=== PATIENT | male | born 1980 | race Caucasian/White ===

== ENCOUNTER 2016-11-17 08:57 | Inpatient (IN) | payer MEDICARE ==
[2016-11-17] MEDS ORDERED: HYDROmorphone 1 MG INJECTION IV ONE (09:18)
[2016-11-17] MEDS ORDERED: ONDANSETRON HCL 4 MG/2 ML VIAL IV ONE (09:18)
[2016-11-17] MEDS ORDERED: ONDANSETRON HCL 4 MG/2 ML VIAL IV PRN (09:18)
[2016-11-17] MEDS: NS 2,000 ML IV ONE ×2 (09:27→11:57)
[2016-11-17 09:29] LABS: AUTOMATED EOSINOPHIL 3.5 % (0-5); AUTOMATED LYMPH 22.7 % (17-44); AUTOMATED MONOCYTE 6.5 % (3-10); AUTOMATED NEUTROPHIL 66.3 % (45-76); MPV 10.5 fL (7.4-10.4)
[2016-11-17 09:51] LABS: BLOOD UREA NITROGEN 11 MG/DL (9-20); CALCIUM 10.1 MG/DL (8.4-10.2); CALCULATED OSMOLALITY 286 MOs/Kg (270-290); CHLORIDE 105 mEq/L (98-107); GLUCOSE 250 mg/dL (70-99); SODIUM LEVEL 145 mEq/L (137-146); TOTAL PROTEIN 8.7 G/DL (6.3-8.2)
[2016-11-17] MEDS ORDERED: Pharmacy Review for Metformin - IV Contrast Given SCH (10:00)
[2016-11-17 10:28] LABS: LEUKOCYTES/URINE NEG (NEGATIVE); NITRITE/URINE NEG (NEGATIVE); RBC/URINE 0-2 (0-2); URINE OCCULT BLOOD NEG (NEG/TRACE); WBC/URINE 0-2 (0-2)
[2016-11-17] MEDS: HYDROmorphone 1 MG INJECTION IV PRN ×2 (10:40→11:56)
--- NOTE | 2016-11-17 10:53 | DIRPT ---
CLINICAL DATA: Upper abdominal pain with nausea and vomiting today, prior appendectomy EXAM: CT ABDOMEN AND PELVIS WITH CONTRAST TECHNIQUE: Multidetector CT imaging of the abdomen and pelvis was performed using the standard protocol following bolus administration of intravenous contrast. Sagittal and coronal MPR images reconstructed from axial data set. CONTRAST: 100 cc Isovue 370 IV. No oral contrast administered. COMPARISON: None FINDINGS: 4 mm subpleural nodular density LEFT lower lobe image 10. Liver, gallbladder, spleen, pancreas, kidneys, and adrenal glands normal appearance. Appendix surgically absent by history. Normal appearing ureters and decompressed bladder. Stomach and bowel loops unremarkable for exam lacking GI contrast. No mass, adenopathy, free air, free fluid or inflammatory process. Bones unremarkable. IMPRESSION: No acute intra-abdominal or intrapelvic abnormalities. Questionable 4 mm subpleural nodule LEFT lower lobe, recommendation below. Beauty If the patient is at high risk for bronchogenic carcinoma, follow-up chest CT at 1 year is recommended. If the patient is at low risk, no follow-up is needed. This recommendation follows the consensus statement: Guidelines for Management of Small Pulmonary Nodules Detected on CT Scans: A Statement from the Fleischner Society as published in Radiology 2005; 237:395-400. Electronically Signed By: Momo Santana M.D. On: 11/17/2016 10:50
[2016-11-17] MEDS ORDERED: PROMETHAZINE 25 MG/ML VIAL IV ONE (11:42)
--- NOTE | 2016-11-17 12:43 | DIRPT ---
CLINICAL DATA: Nausea and vomiting for 6 hours with abdominal pain. EXAM: US ABDOMEN LIMITED - RIGHT UPPER QUADRANT COMPARISON: CT scan 11/17/2016 FINDINGS: Gallbladder: Layering tiny stones are seen in the lumen of the gallbladder without gallbladder wall thickening or pericholecystic fluid. The healthcare customer service reports a positive sonographic Jacobs sign. Common bile duct: Diameter: Normal at 4 mm. Liver: Coarsened echotexture suggests underlying steatosis. IMPRESSION: Gallstones with positive sonographic Jacobs sign. Although gallbladder wall thickness is normal at this time, acute cholecystitis would be a consideration. If clinical exam is equivocal, nuclear scintigraphy may prove helpful to further evaluate for cystic duct obstruction. Electronically Signed By: Jose Smallwood M.D. On: 11/17/2016 12:40
[2016-11-17] MEDS ORDERED: PIPERACILLIN AND TAZOBACTAM 3.375 GM in D5W 100 ML IV ONE (12:45)
--- NOTE | 2016-11-17 12:45 | EDPRACDOC ---
- General Information Chief Complaint: Abdominal Pain Stated Complaint: ABDOMINAL PAIN Time Seen by Provider: 11/17/16 09:14 Information Source: Patient Mode Of Arrival: Car Home Medications: Home Medications Alprazolam [Xanax] 1 mg PO DAILY 11/17/16 Amoxicillin/Potassium Clav [Augmentin 875-125 Tablet] 1 tab PO .BID X 10 Atorvastatin Calcium [Lipitor] 20 mg PO DAILY 11/17/16 Metformin HCl 1,000 mg PO BID 11/17/16 Pregabalin [Lyrica] 150 mg PO BID 11/17/16 Allergies/Adverse Reactions: Allergies Allergy/AdvReac Type Severity Reaction Status Date / Time PHENOBARBITOL Allergy Mild Rash-Genera Uncoded 11/17/16 09:10 lized - History of Present Illness Onset: TODAY Pain Location: Reports: RUQ, Periumbilical Pain Context: Reports: Spontaneous Pain Severity: Mild Pain Quality: Reports: Aching Pain Radiation: Reports: No Radiation Adult Abdominal History: Reports: Abdominal Surgery Modifying Factors: improves with: Nothing Associated Signs & Symptoms: Reports: Nausea Oral Intake: Decreased Urinary Output: Normal ED Past Medical History - History Reviewed Yes Nurses notes reviewed and agree except as marked - Patient Medical History Neurological History: Reports: Cerebrovascular Accident, Seizures (adolescent but none since then; resolved.) Cardiac History: Reports: Hypercholesterolemia Musculoskeletal History: Reports: Arthritis Psychological History: Reports: Anxiety (Panic attacks). Denies: Depression, Substance Use Disorder Systemic History: Reports: Diabetes (Type 2, not on insulin). Denies: Cancer Surgical History: Reports: Appendectomy - Family Medical History Reports: Hypertension (Mother and Father), Diabetes (Mother. Father.), Cancer ( Brain tumor: MGM and maternal uncler and maternal cousin.), Stroke (Mother: Stroke in her 40s.), Cardiac Disorders (Mother: first [place] in early 40s. MGF: [place]. Mother with possible aneurysm in [place]) - Social Medical History Smoking Status: Heavy tobacco smoker (5 or more cigarettes/day or daily pipe/ cigar) Social History: Denies: Substance Use Disorder EDM Review of Systems - Review of Systems ROS Negative Except as Marked: Yes All systems reviewed and were negative except as marked - Physical Exam Constitutional: Alert (Awake), No apparent distress Oriented to: Time, Person, Place Last recorded Vital Signs: Last Vital Signs Temp 97.8 F 11/17/16 09:07 Pulse 62 11/17/16 11:29 Resp 22 11/17/16 11:29 BP 147/76 11/17/16 11:29 Pulse Ox 99 11/17/16 11:29 Oxygen Pulse Oxygen Saturation 99 O2 Device Room Air Oxygen Flow Rate Fraction of Inspired Oxygen ( FIO2) - HEENT Head: Normal ( normocephalic) Eye Exam: Normal (PERRL, EOMI, Sclera white) Oropharynx: Normal (Pharynx:Moist without exudate,Gums-no swelling) ENT EAC: Normal TMJ: Normal Nose: No Symptoms Reported (septum midline) Neck: Normal (FROM, trachea at midline) - Respiratory/Cardiovascular Respiratory: Normal - CTA (BBS clear to auscultation without adventitious sounds ) Cardiovascular: Normal (RRR without murmur, gallop or rub) - GI Auscultation: Normal (NABS) Palpation: Normal (Soft,No rebound or guarding, non distended) Tenderness: Mild, RUQ, Epigastric Jacobs's Sign: Negative - Musculoskeletal Back: Normal (Non-Tender) Extremities: Normal (Normal tone, Pulses 2+ No cyanosis or edema, FROM) - Integumentary Skin: Normal, Warm, Dry Lymphatics: Normal (no adenopathy) - Neurologic Memory Impaired: Normal Motor Function: Normal (Normal tone, Pulses 2+ No cyanosis or edema, FROM) Cranial Nerve: Normal (CN II-X11 intact sensation, strength 5/5) Cerebellar: Normal Mood Description: Normal Perception: Normal - Results 11/17/16 09:20 11/17/16 09:20 WBC 12.4 xk/uL (3.8-10.8) H 11/17/16 09:20 RBC 6.01 xM/uL (4.70-6.10) 11/17/16 09:20 Hgb 16.4 g/dL (14.0-18.0) 11/17/16 09:20 Hct 48.2 % (42-52) 11/17/16 09:20 MCV 80 fL (80-94) 11/17/16 09:20 MCH 27.2 pg (27-32) 11/17/16 09:20 MCHC 34.0 g/dl (33-36) 11/17/16 09:20 RDW 13.8 % (11.5-14.5) 11/17/16 09:20 Plt Count 224 xk/uL (130-400) 11/17/16 09:20 MPV 10.5 fL (7.4-10.4) H 11/17/16 09:20 Neut % (Auto) 66.3 % (45-76) 11/17/16 09:20 Lymph % (Auto) 22.7 % (17-44) 11/17/16 09:20 [place] % (Auto) 6.5 % (3-10) 11/17/16 09:20 Eos % (Auto) 3.5 % (0-5) 11/17/16 09:20 Baso % (Auto) 1.0 % (0-2) 11/17/16 09:20 Absolute Neuts (auto) 8.18 xk/uL (1.7-8.2) 11/17/16 09:20 Absolute Lymphs (auto) 2.73 xk/uL (0.65-4.75) 11/17/16 09:20 Sodium 145 mEq/L (137-146) 11/17/16 09:20 Potassium 4.1 mEq/L (3.5-5.1) 11/17/16 09:20 Chloride 105 mEq/L (98-107) 11/17/16 09:20 Carbon Dioxide 25 mMOL/L (22-33) 11/17/16 09:20 Anion Gap 19 mEq/L (8-16) H 11/17/16 09:20 BUN 11 MG/DL (9-20) 11/17/16 09:20 Creatinine 0.70 MG/DL (0.66-1.25) 11/17/16 09:20 Estimated GFR (MDRD) > 60 mL/min (>=60) 11/17/16 09:20 Glucose 250 mg/dL (70-99) H 11/17/16 09:20 POC Capillary Glucose 224 mg/dL (70-99) H 11/17/16 09:14 Calculated Osmolality 286 MOs/Kg (270-290) 11/17/16 09:20 Calcium 10.1 MG/DL (8.4-10.2) 11/17/16 09:20 Total Bilirubin 0.6 MG/DL (0.2-1.3) 11/17/16 09:20 AST 27 IU/L (17-59) 11/17/16 09:20 ALT 39 IU/L (21-72) 11/17/16 09:20 Alkaline Phosphatase 92 IU/L (38-126) 11/17/16 09:20 Troponin I < 0.01 ng/mL (<.04) 11/17/16 09:20 Total Protein 8.7 G/DL (6.3-8.2) H 11/17/16 09:20 Albumin 4.6 G/DL (3.5-5.0) 11/17/16 09:20 Lipase 110 U/L (23-300) 11/17/16 09:20 Urine Color Yellow 11/17/16 10:15 Urine Clarity Clear 11/17/16 10:15 Urine pH 5.0 (5.0-8.0) 11/17/16 10:15 Ur Specific [place] >/=1.035 (1.003-1.035) 11/17/16 10:15 Urine Protein 2+ (NEG/TRACE) H 11/17/16 10:15 Urine Glucose (UA) 3+ (NEGATIVE) 11/17/16 10:15 Urine Ketones Neg (NEGATIVE) 11/17/16 10:15 Urine Occult Blood Neg (NEG/TRACE) 11/17/16 10:15 Urine Nitrite Neg (NEGATIVE) 11/17/16 10:15 Urine Bilirubin Neg (NEGATIVE) 11/17/16 10:15 Urine Urobilinogen <2.0 MG/DL (0-1) 11/17/16 10:15 Ur Leukocyte Esterase Neg (NEGATIVE) 11/17/16 10:15 Urine RBC 0-2 (0-2) 11/17/16 10:15 Urine WBC 0-2 (0-2) 11/17/16 10:15 Urine Mucus Mod (NEG/OCC) H 11/17/16 10:15 Lab Results 11/17/16 11/17/16 11/17/16 10:15 09:20 09:20 WBC 12.4 H RBC 6.01 Hgb 16.4 Hct 48.2 MCV 80 MCH 27.2 MCHC 34.0 RDW 13.8 Plt Count 224 MPV 10.5 H Neut % (Auto) 66.3 Lymph % (Auto) 22.7 [place] % (Auto) 6.5 Eos % (Auto) 3.5 Baso % (Auto) 1.0 Absolute Neuts (auto) 8.18 Absolute Lymphs (auto) 2.73 Sodium Potassium Chloride Carbon Dioxide Anion Gap BUN Creatinine Estimated GFR (MDRD) Glucose POC Capillary Glucose Calculated Osmolality Calcium Total Bilirubin AST ALT Alkaline Phosphatase Troponin I < 0.01 Total Protein Albumin Lipase 110 Urine Color Yellow Urine Clarity Clear Urine pH 5.0 Ur Specific [place] >/=1.035 Urine Protein 2+ H Urine Glucose (UA) 3+ Urine Ketones Neg Urine Occult Blood Neg Urine Nitrite Neg Urine Bilirubin Neg Urine Urobilinogen <2.0 Ur Leukocyte Esterase Neg Urine RBC 0-2 Urine WBC 0-2 Urine Mucus Mod H 11/17/16 11/17/16 09:20 09:14 WBC RBC Hgb Hct MCV MCH MCHC RDW Plt Count MPV Neut % (Auto) Lymph % (Auto) [place] % (Auto) Eos % (Auto) Baso % (Auto) Absolute Neuts (auto) Absolute Lymphs (auto) Sodium 145 Potassium 4.1 Chloride 105 Carbon Dioxide 25 Anion Gap 19 H BUN 11 Creatinine 0.70 Estimated GFR (MDRD) > 60 Glucose 250 H POC Capillary Glucose 224 H Calculated Osmolality 286 Calcium 10.1 Total Bilirubin 0.6 AST 27 ALT 39 Alkaline Phosphatase 92 Troponin I Total Protein 8.7 H Albumin 4.6 Lipase Urine Color Urine Clarity Urine pH Ur Specific [place] Urine Protein Urine Glucose (UA) Urine Ketones Urine Occult Blood Urine Nitrite Urine Bilirubin Urine Urobilinogen Ur Leukocyte Esterase Urine RBC Urine WBC Urine Mucus - Departure Yes I personally saw and evaluated the patient. Disposition: Admit IP To This Hospital Condition: Good Final Diagnosis: Abdominal pain, CHOLYCYSTITIS Referrals: None,No Provider [Primary Care Provider] - One Week Prescriptions: No Action Amoxicillin/Potassium Clav [Augmentin 875-125 Tablet] 1 tab PO .BID X 10 Pregabalin [Lyrica] 150 mg PO BID Metformin HCl 1,000 mg PO BID Atorvastatin Calcium [Lipitor] 20 mg PO DAILY Alprazolam [Xanax] 1 mg PO DAILY Decision to Admit Time: 12:51 (ANDERSON) Decision to admit date: 11/17/16 Decision to admit: from ED
[2016-11-17] MEDS ORDERED: GLUCAGON 1 MG VIAL SQ PRN (13:15)
[2016-11-17] MEDS ORDERED: MAGNESIUM HYDROXIDE 30 ML BOTTLE PO PRN (13:15)
[2016-11-17] MEDS ORDERED: Albuterol/Ipratropium Neb 3 ML NEB NEB PRN (13:15)
[2016-11-17] MEDS ORDERED: ACETAMINOPHEN 325 MG/TAB TABLET PO PRN (13:15)
[2016-11-17] MEDS ORDERED: Aluminum;Magnesium;Simethicone 30 ML UDC PO PRN (13:15)
[2016-11-17] MEDS ORDERED: SIMETHICONE 80 MG TAB PO PRN (13:15)
[2016-11-17] MEDS ORDERED: DIPHENHYDRAMINE 25 MG CAP PO PRN (13:15)
[2016-11-17] MEDS ORDERED: GLUCOSE (ORAL GEL) 15 GM TUBE PO PRN (13:15)
[2016-11-17] MEDS ORDERED: DOCUSATE-SENNA CONCENTRATE TAB PO PRN (13:15)
[2016-11-17] MEDS ORDERED: DEXTROSE 25 GM/50 ML PFS IV PRN (13:15)
[2016-11-17] MEDS ORDERED: ACETAMINOPHEN 650 MG SUPP PR PRN (13:15)
[2016-11-17 13:59] VITALS: BMI 5271.0
[2016-11-17] MEDS: MORPHINE 2 MG/ML INJECTION IV PRN ×4 (14:06→20:44)
[2016-11-17] MEDS: ONDANSETRON HCL 4 MG/2 ML VIAL IV PRN ×2 (14:15→18:45)
[2016-11-17] MEDS: LR 1,000 ML IV SCH (14:17)
[2016-11-17] MEDS: ERTAPENEM 1 GM in NS 100 ML IV SCH (14:18)
--- NOTE | 2016-11-17 14:55 | HISTPHYS ---
- Chief Complaint right upper quadrant abdominal pain - History of Present Illness This is a 36 year old male that began having right upper quadrant abdominal pain suddenly today. He reports associated nausea and vomiting. He reports that he has chronic low back pain since an injury eleven years ago. - Medical History Cardiac History: Denies: No Significant History, Coronary Artery Disease, Atrial Fibrillation, Hypertension, Congestive Heart Failure, Heart Attack, Cardiac Catheterization, CABG, Stress Test, Hypercholesterolemia, Internal Defibrillator, Pacemaker, Cardiomyopathy, Valvular Heart Disease, Syncope, SVT, Other Respiratory History: Denies: No Significant History, Asthma, COPD, Bronchitis, Asbestosis, Aspiration Pneumonia, Cough, Chronic Bronchitis, Pneumonia, Emphysema, Pulmonary Embolism, Other GI/ History: Denies: No Significant History, Renal Disease, Renal Failure, Renal (Kidney) Cancer, Kidney (Renal Surgery), Urinary Tract Infection, Kidney Stones, Liver Failure, Gastroesophageal Reflux, Ulcer, IBD, Diverticulosis, Pancreatitis, BPH, PMH GI Yes/No Other Musculoskeletal History: Reports: Arthritis Systemic History: Denies: No Significant History, Cancer, Anemia, Diabetes, Hyperthyroidism, Hypothyroidism, HIV, Lupus, Other Neurological History: Reports: Cerebrovascular Accident, Seizures (adolescent but none since then; resolved.) Psychological History: Reports: Anxiety (Panic attacks). Denies: Depression - Surgical History Reports: Appendectomy () - Medictions/Allergies Allergies PHENOBARBITOL Allergy (Mild, Uncoded 11/17/16 09:10) Rash-Generalized Current Medication List: Reviewed Home Medications Alprazolam [Xanax] 1 mg PO DAILY 11/17/16 Amoxicillin/Potassium Clav [Augmentin 875-125 Tablet] 1 tab PO .BID X 10 Atorvastatin Calcium [Lipitor] 20 mg PO DAILY 11/17/16 Metformin HCl 1,000 mg PO BID 11/17/16 Pregabalin [Lyrica] 150 mg PO BID 11/17/16 - Family History Reports: Hypertension (Mother and Father), Diabetes (Mother. Father.), Cancer ( Brain tumor: MGM and maternal uncler and maternal cousin.), Stroke (Mother: Stroke in her 40s.), Cardiac Disorders (Mother: first [place] in early 40s. MGF: [place]. Mother with possible aneurysm in [place]) - Social History Travel Outside of [place] in the Last 3 Months?: No Lives: With Family Smoking Status: Heavy tobacco smoker (5 or more cigarettes/day or daily pipe/ cigar) Social History: Denies: Amphetamine Use, Alcohol Use, Barbiturate Use, Benzodiazipine Use, Cocaine Use, Heroin Use, Marijuana Use, Methadone Use, MDMA (Ecstasy) Use, Substance Use Disorder - Review of Systems Yes All systems reviewed and were negative except as marked (twelve systems reviewed.) - Physical Exam Vital Signs: Initial Vitals Temperature 97.8 F 11/17/16 09:07 Pulse Rate 77 11/17/16 09:07 Respiratory Rate 22 11/17/16 09:07 Blood Pressure 151/71 11/17/16 09:07 Pulse Oxygen Saturation 99 11/17/16 09:07 Constitutional: No apparent distress, Alert (Awake, Fully oriented. Normal and appropriate affect.Well appearing. Well nourished.), Distress (mild) Oriented to: Time, Person, Place - HEENT Head: Normal (normocephalic, atraumatic.), Other (No cervical lymphadenopathy. No supraclavicular lymphadenopathy. Neck: No palpable mass, supple , trachea midline.) Eye: Normal (pupils equal, reactive to light, and round; EOMI, Sclera white) Oropharynx: Normal (Pharynx: Moist without exudate,Gums-no swelling, No oropharyngeal lesions or erythema, Mucous membranes are dry.) TMJ: Normal Nose: No Symptoms Reported (septum midline, Nares patent, without discharge or bleeding.) Respiratory: Normal - CTA (Clear to auscultation bilaterally. No wheezing, rales , rhonchi. Chest wall movements are symmetric. No use of accessory muscles to breathe.) Cardiovascular: Normal (RRR , Normal S1, S2. No murmurs, rubs, or gallops. PMI non-displaced. Carotids: no carotid bruits. No bradycardia or tachycardia. DP pulses 2+ bilaterally.) - GI Auscultation: Normal (normal active sounds) Palpation: Normal (Soft,non distended,nontender. No hepatosplenomegaly.) Tenderness: Moderate, RUQ. negative: Guarding, Rebound, Rigidity Jacobs's Sign: Positive Rectal Exam: Deferred - Exam Deferred: Yes - Musculoskeletal Back: Normal (Non-Tender) Extremities: Normal (Normal tone, DP pulses 2+ bilaterally, No cyanosis or edema bilaterally, FROM bilaterally.) - Integumentary Skin: Normal (Clean, dry, and intact. No rashes. No lesions.) Lymphatics: Normal (No cervical lymphadenopathy. No supraclavicular lymphadenopathy.) - Neurologic Memory Impaired: Normal Motor Function: Normal (Motor 5/5 throughout.Normal tone, Pulses 2+ No cyanosis or edema, FROM) Cranial Nerve: Normal (CN II-XII intact sensation, strength 5/5) Cerebellar: Normal (Babinski: toes downgoing bilaterally. Intact Finger to nose. Sensory grossly intact to light touch. Intact rapid alternating movements bilaterally. No pronator drift.) Mood Description: Normal (Fully oriented. Normal and appropriate affect.) Perception: Normal (Normal and appropriate affect.) - Lab Results 11/17/16 09:20 11/17/16 09:20 - Diagnostic Findings Final Report CLINICAL DATA: Nausea and vomiting for 6 hours with abdominal pain. EXAM: US ABDOMEN LIMITED - RIGHT UPPER QUADRANT COMPARISON: CT scan 11/17/2016 FINDINGS: Gallbladder: Layering tiny stones are seen in the lumen of the gallbladder without gallbladder wall thickening or pericholecystic fluid. The line haul truck driver reports a positive sonographic Jacobs sign. Common bile duct: Diameter: Normal at 4 mm. Liver: Coarsened echotexture suggests underlying steatosis. IMPRESSION: Gallstones with positive sonographic Jacobs sign. Although gallbladder wall thickness is normal at this time, acute cholecystitis would be a consideration. If clinical exam is equivocal, nuclear scintigraphy may prove helpful to further evaluate for cystic duct obstruction. Electronically Signed By: Jose Smallwood M.D. On: 11/17/2016 12:40 - Assessment/Plan (1) Cholelithiasis with chronic cholecystitis K80.10 - CALCULUS OF GALLBLADDER W CHRONIC CHOLECYST W/O OBSTRUCTION Acute Present on Admission: Yes gallbladder Comment: We will plan for laparoscopic cholecystectomy with intraoperative cholangiogram , possible open incision. The indications, benefits and risks associated with the operation were discussed with the patient and the patient's father. All questions were answered. Case Care Discussed with: Patient, Family (Patient's father)
[2016-11-17] MEDS ORDERED: Vaccine Screening Complete SCH (15:00)
--- NOTE | 2016-11-17 15:22 | DIRPT ---
CLINICAL DATA: 36-year-old male with right upper quadrant abdominal pain EXAM: PORTABLE CHEST 1 VIEW COMPARISON: Prior chest x-ray 09/18/2016 FINDINGS: The lungs are clear and negative for focal airspace consolidation, pulmonary edema or suspicious pulmonary nodule. No pleural effusion or pneumothorax. Cardiac and mediastinal contours are within normal limits. No acute fracture or lytic or blastic osseous lesions. The visualized upper abdominal bowel gas pattern is unremarkable. IMPRESSION: Negative chest x-ray. Electronically Signed By: Titus Duarte M.D. On: 11/17/2016 15:20
[2016-11-17] MEDS: PROBIOTIC BLEND TAB PO SCH (16:29)
[2016-11-17] MEDS: PROMETHAZINE 25 MG/ML VIAL IV PRN ×2 (16:35→20:44)
[2016-11-17] MEDS: REGULAR INSULIN 100 UNITS/ML - 3 ML VIAL SQ SCH ×2 (17:20→20:54)
[2016-11-17] MEDS ORDERED: NS 50 ML IV ONE (20:42)
[2016-11-17] MEDS ORDERED: PREGABALIN 50 MG CAP ONE (20:58)
[2016-11-17] MEDS: PREGABALIN 50 MG CAP PO SCH (20:59)
[2016-11-18] MEDS: ONDANSETRON HCL 4 MG/2 ML VIAL IV PRN ×3 (00:12→13:49)
[2016-11-18] MEDS: MORPHINE 2 MG/ML INJECTION IV PRN ×8 (00:12→23:05)
[2016-11-18] MEDS: LR 1,000 ML IV SCH ×3 (04:22→19:32)
[2016-11-18] MEDS: REGULAR INSULIN 100 UNITS/ML - 3 ML VIAL SQ SCH ×4 (05:36→21:22)
[2016-11-18] MEDS: PREGABALIN 50 MG CAP PO SCH ×2 (07:23→21:21)
[2016-11-18] MEDS: ALPRAZOLAM 0.5 MG TAB PO SCH (07:23)
[2016-11-18] MEDS: ATORVASTATIN 20 MG TAB PO SCH (07:23)
[2016-11-18 07:28] LABS: AUTOMATED BASOPHIL 0.3 % (0-2); AUTOMATED EOSINOPHIL 0.1 % (0-5); AUTOMATED LYMPH 14.4 % (17-44); AUTOMATED MONOCYTE 7.6 % (3-10); AUTOMATED NEUTROPHIL 77.6 % (45-76); MPV 11.1 fL (7.4-10.4)
--- NOTE | 2016-11-18 10:39 | PCM.SURGRO ---
- Subjective Patient: Reports: Still having pain, Other (Says he last vomited yesterday). Denies: Nausea, Vomiting - Objective / Physical Exam Vital Signs: Temperature: 98.2 F (11/18/16 05:57) HR: 82 (11/18/16 05:57)RR: 18 (11/18/16 05: 57) BP: 111/69 (11/18/16 05:57)Pulse Ox: 93 (11/18/16 08:00) General: Alert, Oriented x3 Respiratory: Normal - CTA Cardiovascular: Regular rate and rhythm Gastrointestinal: Soft, Bowel Sounds, Tender (Mild in the right upper quadrant) . negative: Distended Laboratory/Diagnostics Reviewed: Laboratory Results - last 24 hr 11/17/16 11/17/16 11/18/16 17:07 20:39 05:34 WBC RBC Hgb Hct MCV MCH MCHC RDW Plt Count MPV Neut % (Auto) Lymph % (Auto) [place] % (Auto) Eos % (Auto) Baso % (Auto) Absolute Neuts (auto) Absolute Lymphs (auto) POC Capillary Glucose 236 H 231 H 227 H 11/18/16 06:50 WBC 17.3 H RBC 5.19 Hgb 14.1 D Hct 41.8 L MCV 81 MCH 27.2 MCHC 33.8 RDW 14.1 Plt Count 213 MPV 11.1 H Neut % (Auto) 77.6 H Lymph % (Auto) 14.4 L [place] % (Auto) 7.6 Eos % (Auto) 0.1 Baso % (Auto) 0.3 Absolute Neuts (auto) 13.32 H Absolute Lymphs (auto) 2.42 POC Capillary Glucose - Assessment and Plan (1) Cholelithiasis with chronic cholecystitis Acute K80.10 - CALCULUS OF GALLBLADDER W CHRONIC CHOLECYST W/O OBSTRUCTION Present on Admission: Yes gallbladder without biliary obstruction K80.10 - Calculus of gallbladder with chronic cholecystitis without obstruction Comment/Plan: Continue antibiotics. Plan laparoscopic cholecystectomy with intraoperative cholangiography by Dr. Lozano tomorrow. Will make him NPO after midnight tonight. Risks and benefits were again discussed with the patient. Continue management of the patient's comorbid medical conditions.
[2016-11-18] MEDS: OXYCODONE HCL 5 MG TABLET PO PRN ×3 (11:04→23:43)
[2016-11-18] MEDS: PROBIOTIC BLEND TAB PO SCH ×2 (11:04→16:52)
[2016-11-18] MEDS: ERTAPENEM 1 GM in NS 100 ML IV SCH (13:49)
[2016-11-19] MEDS: MORPHINE 2 MG/ML INJECTION IV PRN ×5 (05:19→22:39)
[2016-11-19] MEDS: REGULAR INSULIN 100 UNITS/ML - 3 ML VIAL SQ SCH ×4 (05:19→20:48)
[2016-11-19] MEDS: LR 1,000 ML IV SCH ×2 (08:12→15:18)
[2016-11-19] MEDS: PREGABALIN 50 MG CAP PO SCH ×2 (08:12→20:48)
[2016-11-19] MEDS: ATORVASTATIN 20 MG TAB PO SCH (08:12)
[2016-11-19] MEDS: ALPRAZOLAM 0.5 MG TAB PO SCH (08:12)
--- NOTE | 2016-11-19 09:26 | PCM.SURGRO ---
- Subjective Chief Complaint: right upper quadrant burning Hospital Day #: 3 (chronic cholecystitis with cholelithiasis) Patient: Reports: Still having pain (Patient reports a burning sensation in the right upper quadrant with pain.), Tolerating Regular Diet, Voiding without difficulty, Flatus, Afebrile, Other (The patient reports chronic pain in the lower back.). Denies: Nausea, Vomiting, Shortness of breath - Objective / Physical Exam Vital Signs: Temperature: 98.7 F (11/19/16 06:00) HR: 77 (11/19/16 06:00)RR: 20 (11/19/16 06: 00) BP: 107/66 (11/19/16 06:00)Pulse Ox: 94 (11/19/16 06:00) General: Alert, Oriented x3, Cooperative, No acute distress HEENT: Normal Respiratory: Normal - CTA Cardiovascular: Regular rate and rhythm Gastrointestinal: Soft, Bowel Sounds, Tender (Tender in the right upper quadrant of the abdomen.). negative: Distended, Guarding, Firm, Rigid, Hernia Extremities: negative: Swelling, Edema Psych/Mental Status: Appropriate, Normal Affect, Cooperative. negative: Agitated, Anxious Neurological: Normal speech Skin: No rashes Lymphatics: Normal - Assessment and Plan (1) Cholelithiasis with chronic cholecystitis Acute K80.10 - CALCULUS OF GALLBLADDER W CHRONIC CHOLECYST W/O OBSTRUCTION Present on Admission: Yes gallbladder without biliary obstruction K80.10 - Calculus of gallbladder with chronic cholecystitis without obstruction Comment/Plan: We will plan for laparoscopic cholecystectomy with intraoperative cholangiogram , possible open incision. The indications, benefits and risks associated with the operation were discussed with the patient and the patient's significant other. All questions were answered. Informed consent was obtained.
[2016-11-19] MEDS ORDERED: ISOVUE-300 (61%) 50 ML ONE ×2 (09:37→11:59)
[2016-11-19] MEDS ORDERED: BUPIVACAINE 0.5% 30 ML VIAL ONE (09:38)
[2016-11-19] MEDS ORDERED: MORPHINE 10 MG/ML INJECTION IM ONE (10:00)
[2016-11-19] MEDS ORDERED: KETOROLAC TROMETH 30 MG/ML VIAL IM ONE (10:00)
[2016-11-19] MEDS ORDERED: LIDOCAINE 100 MG PFS IV ONE (10:00)
[2016-11-19] MEDS ORDERED: FENTANYL 100 MCG/2 ML VIAL IV ONE (10:00)
[2016-11-19] MEDS ORDERED: GLYCOPYRROLATE 1 MG VIAL IM ONE (10:00)
[2016-11-19] MEDS ORDERED: NEOSTIGMINE 1 MG/1 ML (1:1000) INJ 10 ML MDV IM ONE (10:00)
[2016-11-19] MEDS ORDERED: ONDANSETRON HCL 4 MG/2 ML VIAL IV ONE (10:00)
[2016-11-19] MEDS ORDERED: PROPOFOL 200 MG/20 ML VIAL IV ONE (10:00)
[2016-11-19] MEDS ORDERED: METOCLOPRAMIDE 10 MG/2 ML VIAL IV ONE (10:00)
[2016-11-19] MEDS ORDERED: MEPERIDINE 25 MG/ML TUBEX IV PRN (10:19)
[2016-11-19] MEDS ORDERED: PROMETHAZINE 25 MG/ML VIAL IV PRN ×2 (10:19)
[2016-11-19] MEDS ORDERED: FENTANYL 100 MCG/2 ML VIAL IV PRN (10:19)
[2016-11-19] MEDS ORDERED: LABETALOL 20 MG/4 ML SYRINGE IV PRN (10:19)
[2016-11-19] MEDS ORDERED: ONDANSETRON HCL 4 MG/2 ML VIAL IV PRN (10:19)
[2016-11-19] MEDS ORDERED: ONDANSETRON HCL 4 MG ODT TAB PO PRN (10:19)
[2016-11-19] MEDS ORDERED: hydrALAZINE 20 MG/ML VIAL IV PRN (10:19)
[2016-11-19] MEDS ORDERED: HYDROmorphone 1 MG INJECTION IV PRN (10:19)
--- NOTE | 2016-11-19 10:20 | SC.ANESPOS ---
Post-Anesthesia Note LOC: [place] [facility] - Vital Signs Blood Pressure: 132/70 Pulse: 88 Resp Rate: 16 O2 Sat: 95 Temp: 98.5 F
--- NOTE | 2016-11-19 10:22 | HIM.ANES ---
Anesthesia Evaluation & Plan - Focused Review of Systems Cardiac History: Yes: Hx Cardiac Disorders No: Hx Hypertension, Hx Heart Attack, Hx Cardiac Catheterization, Hx Pacemaker, Hx Congestive Heart Failure, Hx Coronary Artery Bypass Graft, Hx of SVT Respiratory: Yes: Hx Snoring ("tested" for SA, apparently not dx'd) No: Hx Asthma, Hx Emphysema, Hx Chronic Obstructive Pulmonary Disease (COPD) , Hx Pneumonia Gastrointestinal: No: Hx Pancreatitis, Hx Gastrointestinal Disorders, Hx Diverticulosis Genitourinary: No: Hx Renal Disease, Hx Renal Failure Neurological/Musculoskeletal: Yes: HX Cerebrovascular Accident, Hx Seizures ( adolescent but none since then; resolved.), Hx Numbness, Tingling, Weakness in Arms & Legs (Feet/hands), Hx Neurological Disorders No: Hx Syncope Other Neurological Problems: Epilepsy Psychological: Yes Hx Anxiety (Panic attacks), No Hx Depression, Yes Hx Mental/ Emotional Disorders Endocrine: Yes: Hx Non-Insulin Dependent Diabetes No: Hx Hyperthyroidism, Hx Hypothyroidism Blood/Autoimmune: No: Hx Anemia, Hx AIDS, Hx Hepatitis (type) Smoking Status: Heavy tobacco smoker (5 or more cigarettes/day or daily pipe/ cigar) Past Social History: Denies: Amphetamine Use, Alcohol Use, Barbiturate Use, Benzodiazipine Use, Cocaine Use, Heroin Use, Marijuana Use, Methadone Use, MDMA (Ecstasy) Use, Substance Use Disorder Hx Stress Test (date): Yes (10/01) Hx Echocardiogram (date): Yes (10/01) Hx Chest Xray (date): Yes (11/17/16) Surgical History: Yes: Appendectomy () No: CABG - Focused Physical Exam NPO since: Midnight Mallampati: Class II Thyromental Distance: Greater than 3 Neck: Full Range of Motion Dental: Normal - no significant findings Cardiovascular/Chest: Normal Respiratory: Lungs clear Any problems with anesthesia, including nausea and vomiting?: No Any relatives with a history of Malignant Hyperthermia?: No Does patient have a history of Malignant Hyperthermia?: No Beta Steven given (if appropriate): N/A Other: Problem List Problem Status Onset Abdominal pain Acute Cholelithiasis with chronic cholecystitis Acute Arm paresthesia, left Acute Chest pain Acute Nicotine addiction Acute TIA (transient ischemic attack) Acute Type 2 diabetes mellitus with hyperglycemia Acute CBC/BMP/Other 11/18/16 06:50 Allergies Allergy/AdvReac Type Severity Reaction Status Date / Time PHENOBARBITOL Allergy Mild Rash-Genera Uncoded 11/17/16 09:10 lized Home Medications Medication Instructions Recorded Last Taken Type Alprazolam [Xanax] 1 mg PO DAILY 11/17/16 11/16/16 History Amoxicillin/Potassium Clav 1 tab PO .BID X 10 11/17/16 11/16/16 History [Augmentin 875-125 Tablet] Atorvastatin Calcium [Lipitor] 20 mg PO DAILY 11/17/16 11/16/16 History Metformin HCl 1,000 mg PO BID 11/17/16 11/16/16 History Pregabalin [Lyrica] 150 mg PO BID 11/17/16 11/16/16 History Height and Weight Patient's height 6 ft 1 in Patient's weight 279 lb 2 oz Weight (Calculated Kilograms) 126.609 BMI 5271.0 Vital Signs Temperature 98.5 F 11/19/16 10:20 Pulse Rate 88 11/19/16 10:20 Respiratory Rate 16 11/19/16 10:20 Blood Pressure 132/70 11/19/16 10:20 Pulse Oxygen Saturation 95 11/19/16 10:20 - Anesthetic Plan Anesthesia Type: General ASA Class: 3, E -: I have examined this patient and reviewed the medical record. The patient has been assessed prior to anesthesia. Risks and benefits of anesthesia and anesthetic technique options have been discussed and all questions answered. The patient accepts the risk and desires me to proceed with the planned anesthetic.
[2016-11-19] MEDS ORDERED: CEFAZOLIN 1 GM VIAL ONE (11:20)
[2016-11-19] MEDS ORDERED: NIMBEX 10 MG/5 ML VIAL IV ONE ×2 (11:40→16:15)
[2016-11-19] MEDS: PROBIOTIC BLEND TAB PO SCH ×2 (11:49→17:19)
--- NOTE | 2016-11-19 13:31 | HIMOPRPT ---
DATE OF PROCEDURE: 11/19/16 PREOPERATIVE DIAGNOSIS: Chronic cholecystitis with cholelithiasis. POSTOPERATIVE DIAGNOSIS: Chronic cholecystitis with cholelithiasis. PROCEDURE: Laparoscopic cholecystectomy with intraoperative cholangiogram SURGEON: Manpreet Lozano DO. ANESTHESIA: General endotracheal. ANESTHESIOLOGIST: Dr. Arpan Sam SPECIMEN: Gallbladder and contents. SPONGE COUNT: Correct. PACKINGS AND DRAINS: None. PATIENT CONDITION: Stable. ESTIMATED BLOOD LOSS: 5 ml INDICATIONS: This is a 36-year-old M with right upper quadrant and epigastric abdominal pain. Ultrasound demonstrated gallstones. It was recommend to this patient, laparoscopic cholecystectomy with intraoperative cholangiogram, possible open incision. The risks associated with operation were discussed with the patient and the patient's in detail. These risks include, but not limited to bleeding, infection, port site herniation, injury to intra-abdominal blood vessels, injury to small and large intestine, deep vein thrombosis, resultant pulmonary embolism, perioperative cardiac and respiratory morbidity and mortality, injury to common bile duct resulting in need for reoperation, injury to intrahepatic bile duct resulting in need for percutaneous drainage, possible endoscopic retrograde cholangiopancreatography. All questions were answered and informed consent was obtained. FINDINGS: Gallbladder was maximally distended with necrotic areas and a very thin wall. It was filled with gallstones. Moderate omental adhesions of the gallbladder. On intraoperative cholangiogram, contrast flowed into the cystic duct only. OPERATIVE AND TECHNIQUE: With consent, the patient was taken to the operative suite at [facility] and placed in supine position. General anesthesia was induced. Having successful completion of this, the anterior abdomen was sterilely prepped and draped in usual fashion. All members of surgical team were in agreement of correct patient and correct procedure. Curvilinear incision was made inferior to the umbilicus, carried down to the fascial layers entering the peritoneal cavity under direct visualization. It was insufflated to 15 mmHg and kept at or below this pressure at all times during the course of surgery. A total of 3 accessory ports were placed in the right upper quadrant each 5 mm in size, each placed under laparoscopic visualization. Gallbladder was grasped and elevated. Omental adhesions were removed utilizing gentle blunt dissection staying very close to the gallbladder. Cystic duct and cystic artery were circumferentially isolated. Gallbladder cystic duct junction was clearly visualized. Intraoperative cholangiogram was performed with Ta cholangiocatheter, findings as described above. Once again, the cystic duct circumferentially isolated. Three metallic clips were placed across then transected, leaving 2 on the stump and 1 on the specimen. Cystic artery was circumferentially isolated. Three metallic placed across were then transected, leaving 2 on the stump and 1 on the specimen. Hemostasis was excellent. Gallbladder was removed from liver bed utilizing electrocautery, placed in Endobag, removed the body and passed off as specimen. The 5 mm trocar site in the epigastric region was enlarged to allow passage of an 11 mm trocar to suction with dropped gallstones. All stones were suctioned and the right upper quadrant was irrigated and aspirated dry. The fascial incision at the epigastrium required extension laterally to the right and left to remove the very large gallbladder. A 19 maltese Rahat drain was placed in the right upper quadrant and sutured in place with 2-0 Prolene suture. The fascia at the epigastric area was closed with Endoclose device using 0 Vicryl suture x 2 with complete closure of the fascia. Right upper quadrant was vigorously irrigated and aspirated dry. Clips were visualized in place. No evidence of arterial or venous bleeding. No evidence of bile duct leakage. Accessory port sites were hemostatic on removal. CO2 gas was allowed to escape in the peritoneal cavity. Fascia was closed with [id number] 0 Vicryl suture. Skin was closed with 4-0 Monocryl subcuticular stitch. After infiltration of anesthetic, Dermabond was applied. Sterile occlusive dressing was applied over this. Anesthesia was reversed. Mr. Hartman was taken to recovery, having tolerated the procedure well.
--- NOTE | 2016-11-19 13:32 | HIMOPRPT ---
DATE OF PROCEDURE: 11/19/16 Preoperative diagnosis: Cholelithiasis with chronic cholecystitis Postoperative diagnosis: Cholelithiasis with chronic cholecystitis, final pathology pending Procedure: Intraoperative cholangiography under fluoroscopic guidance Surgeon: Manpreet Lozano DO Anesthesia: General ANESTHESIOLOGIST: Dr. Arpan Sam Blood loss: None Packings and drains: None Complications: None Operative findings and technique: During the course of laparoscopic cholecystectomy by Dr. Lozano, intraoperative cholangiography was performed under fluoroscopic guidance. Fluoroscopic images reveal a cholangiocatheter on the infundibulum of the gallbladder. Contrast dye is noted to fill the gallbladder and flow into the cystic duct only. Impression: Intraoperative cholangiography as above.
--- NOTE | 2016-11-19 13:35 | PCM.SURGRO ---
11/19/16 at 1335. Patient's Caprini score reviewed. The risks of starting pharmacologic DVT prophylaxis outweigh the benefits as there is increased risk of bleeding secondary to friable inflamed tissue identified on intraoperative cholangiography.
[2016-11-19] MEDS ORDERED: FENTANYL 100 MCG/2 ML VIAL ONE (14:03)
[2016-11-19] MEDS: FENTANYL 100 MCG/2 ML VIAL IV PRN ×2 (14:04→14:14)
--- NOTE | 2016-11-19 14:15 | DIRPT ---
CLINICAL DATA: Cholecystectomy for cholelithiasis and chronic cholecystitis. EXAM: INTRAOPERATIVE CHOLANGIOGRAM TECHNIQUE: Cholangiographic images from the C-arm fluoroscopic device were submitted for interpretation post-operatively. Please see the procedural report for the amount of contrast and the fluoroscopy time utilized. COMPARISON: Abdominal ultrasound on 11/17/2016 FINDINGS: Submitted intraoperative imaging at the time of surgery demonstrates opacification of the gallbladder lumen as well as the cystic duct. The common bile duct is not well opacified. IMPRESSION: Limited intraoperative imaging demonstrates the gallbladder and cystic duct. The common bile duct is not well opacified. Electronically Signed By: Tyler Heaton M.D. On: 11/19/2016 14:12
[2016-11-19] MEDS ORDERED: HYDROmorphone 1 MG INJECTION ONE (14:25)
[2016-11-19] MEDS: HYDROmorphone 1 MG INJECTION IV PRN ×5 (14:29→21:16)
[2016-11-19] MEDS: ERTAPENEM 1 GM in NS 100 ML IV SCH (15:18)
[2016-11-19] MEDS: OXYCODONE HCL 5 MG TABLET PO PRN (16:13)
[2016-11-20] MEDS: HYDROmorphone 1 MG INJECTION IV PRN ×2 (00:06→01:29)
[2016-11-20] MEDS: HYDROmorphone 50 ML IV PRN ×2 (02:11→12:24)
[2016-11-20] MEDS: LR 1,000 ML IV SCH ×3 (05:19→19:37)
[2016-11-20] MEDS: REGULAR INSULIN 100 UNITS/ML - 3 ML VIAL SQ SCH ×4 (06:10→22:32)
[2016-11-20] MEDS: ATORVASTATIN 20 MG TAB PO SCH (08:41)
[2016-11-20] MEDS: ALPRAZOLAM 0.5 MG TAB PO SCH (08:44)
[2016-11-20] MEDS: PREGABALIN 50 MG CAP PO SCH ×2 (08:44→22:25)
[2016-11-20] MEDS: PROBIOTIC BLEND TAB PO SCH ×2 (12:27→17:47)
--- NOTE | 2016-11-20 13:41 | PCM.SURGRO ---
- Subjective Chief Complaint: soreness at drain insertion site Post Op Day: 1 Patient: Reports: Still having pain (Patient reports pain and soreness at drain insertion site. He reports that he feels better compared to prior to surgery.) , Tolerating Regular Diet, Voiding without difficulty, No Flatus, No Bowel Movement, Afebrile, Ambulating in [place] (twice according to the patient.), Ambulating in Room (Up to bathroom.). Denies: Diarrhea, Nausea, Vomiting - Objective / Physical Exam Vital Signs: Temperature: 98.9 F (11/20/16 06:00) HR: 92 (11/20/16 06:00)RR: 20 (11/20/16 12: 00) BP: 126/77 (11/20/16 06:00)Pulse Ox: 92 (11/20/16 06:00) General: Alert, Oriented x3, Cooperative, No acute distress HEENT: Normal, Anicteric Sclera, Mucous membr. moist/pink Respiratory: Normal - CTA Cardiovascular: Regular rate and rhythm Gastrointestinal: Soft, Bowel Sounds (very few bowel sounds.). negative: Distended, Tender, Guarding, Firm, Rigid, Hernia Back: Normal Extremities: negative: Swelling, Edema Psych/Mental Status: Appropriate, Normal Affect, Cooperative. negative: Agitated, Anxious Neurological: Normal speech Skin: Warm,Dry and Intact, No rashes Surgical wound: Other (dressings intact. At the drain there is serosanguinous drainage. No purulent drainage. No bilious drainage.) - Assessment and Plan (1) Cholelithiasis with chronic cholecystitis Acute K80.10 - CALCULUS OF GALLBLADDER W CHRONIC CHOLECYST W/O OBSTRUCTION Present on Admission: Yes gallbladder without biliary obstruction K80.10 - Calculus of gallbladder with chronic cholecystitis without obstruction Comment/Plan: The patient is postoperative day #1. We will continue supportive care and await return of bowel function. I encouraged the patient in ambulation and decreasing the usage of the Dilaudid [employer] as the continued increased usage increases risk of postoperative ileus. The patient voiced understanding. The patient's caprini score was noted. The risks of starting pharmacologic DVT prophylaxis outweigh the benefits at this time. We will await return of bowel function and improved pain control with oral analgesics prior to discharge. I discussed the treatment plan with the patient and the patient's . All questions were answered. They voiced understanding and agreement with the above plan.
[2016-11-20] MEDS: ERTAPENEM 1 GM in NS 100 ML IV SCH (14:10)
[2016-11-20] MEDS ORDERED: ALPRAZOLAM 0.5 MG TAB PO ONE (22:44)
[2016-11-21] MEDS: HYDROmorphone 50 ML IV PRN (02:57)
[2016-11-21] MEDS: REGULAR INSULIN 100 UNITS/ML - 3 ML VIAL SQ SCH ×4 (06:50→20:15)
[2016-11-21] MEDS: PREGABALIN 50 MG CAP PO SCH ×2 (08:00→20:14)
[2016-11-21] MEDS: ATORVASTATIN 20 MG TAB PO SCH (08:33)
[2016-11-21] MEDS: LR 1,000 ML IV SCH ×2 (08:33→23:34)
[2016-11-21] MEDS: ALPRAZOLAM 0.5 MG TAB PO SCH (08:37)
[2016-11-21] MEDS: PROBIOTIC BLEND TAB PO SCH ×2 (08:38→14:33)
[2016-11-21] MEDS: ERTAPENEM 1 GM in NS 100 ML IV SCH (12:24)
--- NOTE | 2016-11-21 12:43 | PCM.SURGRO ---
- Subjective Chief Complaint: pain at the drain insertion site Post Op Day: 3 (laparoscopic cholecystectomy) Patient: Reports: Feels better (Patient reports that he feels better but still has pain at the drain insertion site.), Pain is less, Tolerating Regular Diet, Voiding without difficulty, Flatus, No Bowel Movement, Afebrile, Ambulating in [place] (seven times this morning according to the patient.). Denies: Blood in Stool, Nausea, Vomiting, Shortness of breath - Objective / Physical Exam Vital Signs: Temperature: 98.0 F (11/21/16 06:28) HR: 92 (11/21/16 06:28)RR: 18 (11/21/16 08: 00) BP: 117/66 (11/21/16 06:28)Pulse Ox: 93 (11/21/16 09:08) General: Alert, Oriented x3, Cooperative, No acute distress HEENT: Normal, Mucous membr. moist/pink Respiratory: Normal - CTA Cardiovascular: Regular rate and rhythm Gastrointestinal: Soft, Tender (expected tenderness at incisions.), Other ( serous drainage in the drain.). negative: Distended, Bowel Sounds, Guarding, Firm, Rigid, Hernia Back: Normal Extremities: negative: Swelling, Edema Psych/Mental Status: Appropriate, Normal Affect, Cooperative. negative: Agitated, Anxious Neurological: Normal speech Skin: Warm,Dry and Intact, No rashes Surgical wound: Other (dressings intact.) Lymphatics: Normal - Assessment and Plan (1) Cholelithiasis with chronic cholecystitis Acute K80.10 - CALCULUS OF GALLBLADDER W CHRONIC CHOLECYST W/O OBSTRUCTION Present on Admission: Yes gallbladder without biliary obstruction K80.10 - Calculus of gallbladder with chronic cholecystitis without obstruction Comment/Plan: The patient is postoperative day #2. We will continue supportive care and decrease intravenous analgesia as able. I discussed the treatment plan with the patient and the patient's at length. All questions were answered. They voiced understanding and agreement with the above plan.
[2016-11-21] MEDS ORDERED: BENZOCAINE 7.5% TOP PRN (12:47)
[2016-11-21] MEDS: IBUPROFEN 600 MG TAB PO PRN ×2 (14:33→23:31)
[2016-11-21] MEDS: OXYCODONE HCL 5 MG TABLET PO PRN ×3 (14:33→23:31)
[2016-11-21] MEDS: HYDROmorphone 1 MG INJECTION IV PRN ×2 (17:01→20:14)
[2016-11-22] MEDS: OXYCODONE HCL 5 MG TABLET PO PRN ×3 (04:15→20:58)
[2016-11-22] MEDS: HYDROmorphone 1 MG INJECTION IV PRN ×6 (04:19→23:50)
[2016-11-22] MEDS: REGULAR INSULIN 100 UNITS/ML - 3 ML VIAL SQ SCH ×4 (05:26→21:35)
[2016-11-22] MEDS ORDERED: MEBROFENIN 5 MCI V IV ONE (08:36)
--- NOTE | 2016-11-22 10:53 | DIRPT ---
CLINICAL DATA: Recent cholecystectomy EXAM: NUCLEAR MEDICINE HEPATOBILIARY IMAGING TECHNIQUE: Sequential images of the abdomen were obtained out to 60 minutes following intravenous administration of radiopharmaceutical. RADIOPHARMACEUTICALS: 5.5 mCi Tc-99m Choletec IV COMPARISON: None. FINDINGS: There is adequate uptake of radioactive tracer throughout the liver immediately following injection. The liver was imaged for 2 hours and no significant visualization of the common bile duct or small bowel is noted. There is some free technetium identified within the stomach. No evidence of bile leak is noted. IMPRESSION: No evidence of bile leak. Adequate uptake of tracer throughout the liver although no significant excretion into the biliary tree is noted. Correlation with laboratory values is recommended. This may represent acute hepatic dysfunction or possible biliary duct blockage. These results were called by telephone at the time of interpretation on 11/22/2016 at 10:[address] TRAN BARRON, who verbally acknowledged these results. Electronically Signed By: Momo Wharton M.D. On: 11/22/2016 10:50
[2016-11-22] MEDS: ALPRAZOLAM 0.5 MG TAB PO SCH (11:01)
[2016-11-22] MEDS: PREGABALIN 50 MG CAP PO SCH ×2 (11:02→21:21)
[2016-11-22] MEDS: ATORVASTATIN 20 MG TAB PO SCH (11:02)
[2016-11-22 11:09] LABS: AUTOMATED BASOPHIL 0.9 % (0-2); AUTOMATED EOSINOPHIL 4.7 % (0-5); AUTOMATED LYMPH 15.1 % (17-44); AUTOMATED MONOCYTE 9.7 % (3-10); AUTOMATED NEUTROPHIL 69.6 % (45-76); MPV 9.6 fL (7.4-10.4)
[2016-11-22] MEDS ORDERED: BISACODYL 10 MG SUPP PR ONE (11:30)
[2016-11-22 11:33] LABS: BLOOD UREA NITROGEN 10 MG/DL (9-20); CALCULATED OSMOLALITY 268 MOs/Kg (270-290); GLUCOSE 111 mg/dL (70-99); SODIUM LEVEL 139 mEq/L (137-146)
[2016-11-22 11:35] LABS: CALC CORRECTED 9.9 MG/DL (8.4-10.2); CALCIUM 8.9 MG/DL (8.4-10.2); TOTAL PROTEIN 6.1 G/DL (6.3-8.2)
[2016-11-22] MEDS: PROBIOTIC BLEND TAB PO SCH ×2 (12:03→17:11)
--- NOTE | 2016-11-22 12:04 | PCM.SURGRO ---
- Subjective Chief Complaint: occasional pain at the drain insertion site Post Op Day: 3 (laparoscopic cholecystectomy) Patient: Reports: Feels better (patient reports much less abdominal pain.), Tolerating Regular Diet, Voiding without difficulty, Flatus, Afebrile, Ambulating in [place], Ambulating in Room. Denies: Nausea, Vomiting, Shortness of breath - Objective / Physical Exam Vital Signs: Temperature: 98.4 F (11/22/16 04:48) HR: 68 (11/22/16 04:48)RR: 18 (11/22/16 04: 48) BP: 113/65 (11/22/16 04:48)Pulse Ox: 93 (11/22/16 04:48) General: Alert, Oriented x3, Cooperative, No acute distress HEENT: Normal, Anicteric Sclera Respiratory: Normal - CTA Cardiovascular: Regular rate and rhythm Gastrointestinal: Soft, Bowel Sounds. negative: Distended, Tender (other than expected tenderness at the drain insertion site and the umbilicus.), Guarding, Firm, Rigid, Hernia Extremities: negative: Swelling, Edema Psych/Mental Status: Appropriate, Normal Affect, Cooperative. negative: Agitated, Anxious Neurological: Normal speech Skin: Warm,Dry and Intact, No rashes Surgical wound: Other (dressings intact) - Assessment and Plan (1) Cholelithiasis with chronic cholecystitis Acute K80.10 - CALCULUS OF GALLBLADDER W CHRONIC CHOLECYST W/O OBSTRUCTION Present on Admission: Yes gallbladder without biliary obstruction K80.10 - Calculus of gallbladder with chronic cholecystitis without obstruction Comment/Plan: I personally reviewed the HIDA scan and discussed it with Dr. Wharton, radiologist. There is no evidence of bile leak. We will obtain stat CMP to evaluate for elevate liver enzymes or bilirubin. We were unable to perform intraoperative cholangiogram secondary to the very thick walled gallbladder. We will obtain an MRCP to evaluate for residual choledocholithiasis. The patient' s caprini score noted. The risks of pharmacologic DVT prophylaxis outweigh the benefits at this time as there is very friable inflamed tissue at the surgical site. The patient has been ambulating and SCDs are in place.
[2016-11-22 12:18] LABS: CHLORIDE 98 mEq/L (98-107)
--- NOTE | 2016-11-22 15:04 | PCM.SURGRO ---
11/22/16 at 1500. I discussed the HIDA scan and comprehensive metabolic panel results with the patient and the patient's significant other. The patient had eaten today, so MRCP unable to be performed. We will plan for MRCP on 11/23/16. The patient reports that overall, he feels much better. The patient is afebrile , minimal serosanguinous drainage noted. We will await the results of the MRCP.
[2016-11-22] MEDS: IBUPROFEN 600 MG TAB PO PRN (16:23)
[2016-11-22] MEDS: LR 1,000 ML IV SCH (16:24)
[2016-11-22] MEDS ORDERED: ALPRAZOLAM 0.5 MG TAB PO ONE (21:16)
[2016-11-23] MEDS: LR 1,000 ML IV SCH (05:14)
[2016-11-23] MEDS: REGULAR INSULIN 100 UNITS/ML - 3 ML VIAL SQ SCH ×2 (05:58→12:01)
[2016-11-23] MEDS: HYDROmorphone 1 MG INJECTION IV PRN ×2 (07:23→11:00)
[2016-11-23 07:37] LABS: BLOOD UREA NITROGEN 7 MG/DL (9-20); CALC CORRECTED 9.7 MG/DL (8.4-10.2); CALCIUM 8.4 MG/DL (8.4-10.2); CALCULATED OSMOLALITY 269 MOs/Kg (270-290); CHLORIDE 102 mEq/L (98-107); GLUCOSE 225 mg/dL (70-99); SODIUM LEVEL 137 mEq/L (137-146); TOTAL PROTEIN 5.6 G/DL (6.3-8.2)
[2016-11-23] MEDS: ATORVASTATIN 20 MG TAB PO SCH (10:58)
[2016-11-23] MEDS: ALPRAZOLAM 0.5 MG TAB PO SCH (10:59)
[2016-11-23] MEDS: PREGABALIN 50 MG CAP PO SCH (10:59)
--- NOTE | 2016-11-23 11:33 | DIRPT ---
CLINICAL DATA: 36-year-old male status post laparoscopic cholecystectomy. Evaluate patency of biliary ducts. EXAM: MRI ABDOMEN WITHOUT AND WITH CONTRAST TECHNIQUE: Multiplanar multisequence MR imaging of the abdomen was performed both before and after the administration of intravenous contrast. CONTRAST: 20 mL of MultiHance. COMPARISON: No prior abdominal MRI. CT the abdomen and pelvis 11/17/2016. FINDINGS: Lower chest: Small amount of increased signal intensity in the dependent portions of the right lower lobe, nonspecific, but favored to represent some mild postoperative atelectasis. Hepatobiliary: Mild diffuse loss of signal intensity throughout the hepatic parenchyma on out of phase dual echo images, compatible with a background of mild hepatic steatosis. Tiny 6 mm lesion in segment 5 of the liver (image 16 of series 7) is low T1 signal intensity, high T2 signal intensity, demonstrates avid arterial phase hyper enhancement which persist on delayed images, most compatible with a small flash fill cavernous hemangioma. No other suspicious hepatic lesions are noted. No intra or extrahepatic biliary ductal dilatation is noted on MRCP images. Common bile duct measures 3 mm in the brina hepatis. In the gallbladder fossa there is a small amount of T1 hypointense, T2 hyperintense fluid, which measures approximately 11 x 32 x 13 mm. This likely represents a tiny postoperative seroma. Susceptibility artifact in the midst of this collection presumably from surgical clips. Pancreas: No pancreatic mass. No pancreatic ductal dilatation. No pancreatic or peripancreatic fluid or inflammatory changes. Spleen: Unremarkable. Adrenals/Urinary Tract: Visualized portions of bilateral adrenal glands and bilateral kidneys are normal in appearance. No hydroureteronephrosis in the visualized abdomen. Stomach/Bowel: Visualized portions are unremarkable. Vascular/Lymphatic: No aneurysm identified in the visualized abdominal vasculature. No lymphadenopathy noted in the abdomen. Other: Surgical drain entering the abdomen in the right upper quadrant, extending along the lateral margin of the liver into the right pericolic gutter. No significant volume of ascites in the visualized peritoneal cavity. Small amount of increased T2 signal intensity in the musculature of the right flank, presumably some postoperative edema. There is also increased T2 signal intensity in the anterior abdominal wall in the right upper quadrant, presumably a healing surgical scar. Musculoskeletal: No aggressive osseous lesions are noted in the visualized portions of the skeleton. IMPRESSION: 1. No findings to suggest biliary tract obstruction. 2. Status post cholecystectomy with small postoperative fluid collection in the gallbladder fossa, favored to represent a postoperative seroma. 3. Tiny flash fill cavernous hemangioma in segment 5 of the liver, as above. 4. Additional postoperative an incidental findings, as above. Electronically Signed By: Isaiah Dunne M.D. On: 11/23/2016 11:30
[2016-11-23] MEDS: PROBIOTIC BLEND TAB PO SCH (12:02)
[2016-11-23] MEDS: OXYCODONE HCL 5 MG TABLET PO PRN (12:46)
--- NOTE | 2016-11-23 13:44 | PCM.DCS92 ---
- Final/Secondary Discharge Diagnosis (1) Cholelithiasis with chronic cholecystitis Acute K80.10 - CALCULUS OF GALLBLADDER W CHRONIC CHOLECYST W/O OBSTRUCTION Present on Admission: Yes gallbladder without biliary obstruction K80.10 - Calculus of gallbladder with chronic cholecystitis without obstruction Plan/Goal/Comment: The patient is stable for discharge. Full and careful discharge instructions were discussed with the patient and his significant other. All questions were answered. Discharge Disposition: Home Discharge Condition: Good Cognitive Discharge Status: Unimpaired Fuctional Discharge Status: Independent Physician Follow up/Referrals: None,No Provider [Primary Care Provider] - 1-2 Days Manpreet Lozano DO [Staff Physician] - 1-2 Days Home Medications/ New Prescriptions: New Alprazolam [Xanax] 1 mg PO DAILY #7 tablet Oxycodone Immediate Release [Oxy-Ir] 5 mg PO Q6H PRN #40 tab PRN Reason: Pain Discontinued Alprazolam [Xanax] 1 mg PO DAILY No Action Amoxicillin/Potassium Clav [Augmentin 875-125 Tablet] 1 tab PO .BID X 10 Pregabalin [Lyrica] 150 mg PO BID Metformin HCl 1,000 mg PO BID Atorvastatin Calcium [Lipitor] 20 mg PO DAILY Additional Instructions: Empty and record drain output daily. Incentive spirometer and fluter valve every hour while awake. Diet at Discharge: Diabetic, 2200 Calorie Activity: No Heavy Lifting, No Driving Call Office For: Worsening Symptoms, Wound is Draining Pus, Fever over 101 F, Wound is Painful, Wound is Red, Pain Uncontrolled By Meds, Other (See Details) ( chest pain or difficulty breathing) Discontinue use of:: Alcohol, All Illegal Substances, All Types of Tobacco - DC Summary Notes Hospital Course Note:: Discharge summary on patient named EJ YOUNG admitted to [facility] on 11/17/16 by Manpreet Lozano DO. The patient was diagnosed with chronic cholecystitis and cholelithiasis. He underwent laparoscopic cholecystectomy. Please see operative report for full details. Postoperatively , the patient's diet and activity were slowly advanced, which he was able to tolerate. Imaging demonstrated no bile leak or bile duct obstruction. The patient was stable for discharge. Full and careful discharge instructions were discussed with the patient and the patient's significant other. All questions were answered. Date of discharge is 11/23/16. Discharge condition: stable Final discharge diagnosis: acute on chronic cholecystitis with cholelithiasis Wound Care Surgical Site: Yes May Shower Starting:: 11/24/16 Remove Clear Dressing In How Many Days?: 7 Remove Gauze Dressing in How Many Days?: 7 Ability To Perform Care (if applicable): Yes - Physical Exam Vital Signs: Initial Vitals Temperature 97.8 F 11/17/16 09:07 Pulse Rate 77 11/17/16 09:07 Respiratory Rate 22 11/17/16 09:07 Blood Pressure 151/71 11/17/16 09:07 Pulse Oxygen Saturation 99 11/17/16 09:07 Constitutional: Alert (Awake, Fully oriented. Normal and appropriate affect.Well appearing. Well nourished.), No apparent distress Oriented to: Time, Person, Place - HEENT Head: Normal (normocephalic, atraumatic.), Other (No cervical lymphadenopathy. No supraclavicular lymphadenopathy. Neck: No palpable mass, supple , trachea midline.) Eye: Normal (pupils equal, reactive to light, and round; EOMI, Sclera white) Oropharynx: Normal (Pharynx: Moist without exudate,Gums-no swelling, No oropharyngeal lesions or erythema, Mucous membranes are dry.) Nose: No Symptoms Reported (septum midline, Nares patent, without discharge or bleeding.) Respiratory: Normal - CTA (Clear to auscultation bilaterally. No wheezing, rales , rhonchi. Chest wall movements are symmetric. No use of accessory muscles to breathe.) Cardiovascular: Normal (RRR , Normal S1, S2. No murmurs, rubs, or gallops. PMI non-displaced. Carotids: no carotid bruits. No bradycardia or tachycardia. DP pulses 2+ bilaterally.) - GI Auscultation: Normal (normal active sounds) Palpation: Normal (Soft,non distended,nontender. No hepatosplenomegaly.) Tenderness: Non tender (No rebound or guarding), Other (Serous drainage from the drain. No bilious drainage.) Jacobs's Sign: Negative Rectal Exam: Deferred - Musculoskeletal Back: Normal (Non-Tender) Extremities: Normal (Normal tone, DP pulses 2+ bilaterally, No cyanosis or edema bilaterally, FROM bilaterally.) - Integumentary Skin: Normal (Clean, dry, and intact. No rashes. No lesions.) Lymphatics: Normal (No cervical lymphadenopathy. No supraclavicular lymphadenopathy.) - Neurologic Memory Impaired: Normal Motor Function: Normal (Motor 5/5 throughout.Normal tone, Pulses 2+ No cyanosis or edema, FROM) Cranial Nerve: Normal (CN II-XII intact sensation, strength 5/5) Cerebellar: Normal (Babinski: toes downgoing bilaterally. Intact Finger to nose. Sensory grossly intact to light touch. Intact rapid alternating movements bilaterally. No pronator drift.) Mood Description: Normal (Fully oriented. Normal and appropriate affect.) Perception: Normal (Normal and appropriate affect.)
[2016-11-23 14:40] VITALS: BP 124/81
[2016-11-23 14:41] VITALS: PULSE 78; TEMP 98.4
== END 2016-11-23 15:36 | disposition home or self-care (01) | DRG 419 ==
LOC: ED 08:57 → MPS3 13:14
PROVIDERS: ADMIT Surgery; ATTEND Surgery
PROC: BF131ZZ Fluoroscopy of Gallbladder and Bile Ducts using Low Osmolar Contrast (ICD-10-PCS; 2016-11-19)
PROC: 0FT44ZZ Resection of Gallbladder, Percutaneous Endoscopic Approach (ICD-10-PCS; principal; 2016-11-19 10:15)
DX: K80.12 Calculus of gallbladder with acute and chronic cholecystitis without obstruction (principal); F41.0 Panic disorder [episodic paroxysmal anxiety]; G89.29 Other chronic pain; M54.5 Low back pain; M19.90 Unspecified osteoarthritis, unspecified site; Z88.8 Allergy status to other drugs, medicaments and biological substances; Z86.73 Personal history of transient ischemic attack (TIA), and cerebral infarction without residual deficits; Z79.84 Long term (current) use of oral hypoglycemic drugs
CPT/HCPCS: 36415; 71010; 74177; 74183; 74300; 76705; 78226; 80053; 81001; 82962; 83690; 84484; 85025; 93005; 96361; 96365; 96372; 96375; 99284; 99406; A9537; A9577; A9698; G0237; J0690; J1170; J1335; J1885; J2001; J2270; J2405; J2543; J2550; J2710; J2765; J3010; J3490; J7030; J7060